=== PATIENT | male | born 1975 | race Hispanic/Latino ===

== ENCOUNTER 2018-04-19 18:15 | Inpatient (IN) | payer MEDICARE ==
--- NOTE | 2018-04-19 18:33 | Emergency Department Report ---
Blank Doc - Documentation Documentation: This is a 43-year-old male that presents to the ED with right forearm. Denies any injuries. MRI and xrays done last year and was diagnosed with "cyst". Patient denies any other complaints. This initial assessment diagnostic orders/clinical plan/treatment(s) is/are subject to change based on patient's health status, clinical progression and re- assessment by fellow clinical providers in the ED. Further treatment and workup at subsequent clinical providers discretion. Patient/guardians urged not to elope from ED s their condition may be serious if not clinically assessed and managed. Initial orders include: 1-patient sent to [facility] for further evaluation and treatment.
[2018-04-20 00:08] LABS: Basophils % (Auto) 0.3 % (0.0-1.8); Eosinophils # (Auto) 0.1 K/mm3 (0.0-0.4); Eosinophils % (Auto) 1.2 % (0.0-4.3); Hematocrit 47.7 % (35.5-45.6); Hemoglobin 16.6 gm/dl (11.8-15.2); Lymphocytes % (Auto) 39.6 % (13.4-35.0); Mean Corpuscular HGB Conc 35 % (32-34); Mean Corpuscular Volume 90 fl (84-94); Monocytes # (Auto) 0.7 K/mm3 (0.0-0.8); Monocytes % (Auto) 6.9 % (0.0-7.3); Platelet Count 361 K/mm3 (140-440); Red Blood Count 5.28 M/mm3 (3.65-5.03); Red Cell Distribution Width 12.9 % (13.2-15.2)
[2018-04-20 00:18] LABS: INR 0.92 (0.87-1.13); Partial Thromboplastin Time 24.6 Sec. (24.2-36.6)
[2018-04-20 00:21] LABS: Albumin 4.6 g/dL (3.9-5); BUN/Creatinine Ratio 21; Blood Urea Nitrogen 21 mg/dL (9-20); Calcium 9.4 mg/dL (8.4-10.2); Hemolysis Index 191
[2018-04-20 00:34] LABS: Alanine Aminotransferase 43 units/L (7-56)
[2018-04-20] MEDS ORDERED: LIORESAL PO ONE (00:50)
[2018-04-20] MEDS ORDERED: MORPHINE ONE (01:04)
[2018-04-20] MEDS ORDERED: MORPHINE IV ONE (01:05)
[2018-04-20] MEDS ORDERED: NACL 0.9% 1000 ML 1,000 ML IV ONE ×2 (01:27)
--- NOTE | 2018-04-20 02:08 | Emergency Department Report ---
ED General Adult HPI - General Chief complaint: Extremity Problem,Nontraumatic Stated complaint: RIGHT ARM PAIN Time Seen by Provider: 04/19/18 18:32 Source: patient Mode of arrival: Ambulatory Limitations: No Limitations - History of Present Illness Initial comments: Patient is a poor historian. He complained of right upper extremity pain which has been ongoing for several weeks and became worse. -: Gradual, month(s) Location: upper extremity Radiation: non-radiation Severity scale (0 -10): 6 Consistency: constant Improves with: none Worsens with: none Associated Symptoms: denies other symptoms Treatments Prior to Arrival: none - Related Data Home Medications Medication Instructions Recorded Confirmed Last Taken amLODIPine [Norvasc] 10 mg PO DAILY 10/05/14 01/01/15 12/31/14 Lisinopril [Zestril TAB] 20 mg PO QDAY 01/01/15 01/01/15 12/31/14 Allergies Allergy/AdvReac Type Severity Reaction Status Date / Time Penicillins Allergy Unknown Verified 12/31/14 10:03 ED Review of Systems ROS: Stated complaint: RIGHT ARM PAIN Other details as noted in HPI Comment: All other systems reviewed and negative Constitutional: denies: chills, fever Eyes: denies: eye pain, eye discharge, vision change ENT: denies: ear pain, throat pain Respiratory: denies: cough, shortness of breath, wheezing Cardiovascular: denies: chest pain, palpitations Endocrine: no symptoms reported Gastrointestinal: denies: abdominal pain, nausea, diarrhea Genitourinary: denies: urgency, dysuria Musculoskeletal: other (right arm pain.). denies: back pain, joint swelling, arthralgia Skin: denies: rash, lesions Neurological: denies: headache, weakness, paresthesias Psychiatric: denies: anxiety, depression Hematological/Lymphatic: denies: easy bleeding, easy bruising ED Past Medical Hx - Past Medical History Previous Medical History?: Yes Hx Hypertension: Yes Hx CVA: Yes Hx Kidney Stones: Yes Hx Psychiatric Treatment: Yes (unsure of diagnosis/"SCHIZOPHRENIA/ MANIC DEPRESSION") - Surgical History Past Surgical History?: Yes Additional Surgical History: LITHOTRIPSY. TRACH/ FEEDING TUBE--CLOSED NOW - Social History Smoking Status: Never Smoker Substance Use Type: Prescribed - Medications Home Medications: Home Medications Medication Instructions Recorded Confirmed Last Taken Type amLODIPine [Norvasc] 10 mg PO DAILY 10/05/14 01/01/15 12/31/14 History Lisinopril [Zestril TAB] 20 mg PO QDAY 01/01/15 01/01/15 12/31/14 History ED Physical Exam - General Limitations: No Limitations General appearance: alert, in no apparent distress - Head Head exam: Present: atraumatic, normocephalic - Eye Eye exam: Present: normal appearance, other (patient is legally blind) - ENT ENT exam: Present: mucous membranes moist - Neck Neck exam: Present: normal inspection, full ROM. Absent: tenderness - Respiratory Respiratory exam: Present: normal lung sounds bilaterally. Absent: respiratory distress - Cardiovascular Cardiovascular Exam: Present: regular rate, normal rhythm. Absent: systolic murmur, diastolic murmur, rubs, gallop - GI/Abdominal GI/Abdominal exam: Present: soft, normal bowel sounds - Rectal Rectal exam: Present: deferred - Extremities Exam Extremities exam: Present: normal inspection, normal capillary refill - Back Exam Back exam: Present: normal inspection - Neurological Exam Neurological exam: Present: alert, oriented X3 - Psychiatric Psychiatric exam: Present: normal affect, normal mood - Skin Skin exam: Present: warm, dry, intact, normal color. Absent: rash ED Course Vital Signs 04/19/18 04/19/18 04/19/18 18:31 22:53 22:55 Temperature 98.5 F Pulse Rate 98 H 78 80 Respiratory 18 17 18 Rate Blood Pressure 152/94 122/78 Blood Pressure 122/78 [Left] O2 Sat by Pulse 97 96 96 Oximetry 04/19/18 04/19/18 04/20/18 23:00 23:47 00:01 Temperature Pulse Rate 74 77 Respiratory 19 16 18 Rate Blood Pressure 124/85 124/85 Blood Pressure [Left] O2 Sat by Pulse 96 98 Oximetry 04/20/18 01:01 Temperature Pulse Rate 64 Respiratory 18 Rate Blood Pressure 124/85 Blood Pressure [Left] O2 Sat by Pulse Oximetry - Consultations Consultation #1: 04/20/18 02:21 Dr. Venecia Hanley to admit patient for further management. ED Medical Decision Making - Lab Data Result diagrams: 04/19/18 23:59 04/19/18 23:59 Lab Results 04/19/18 04/19/18 04/19/18 Range/Units 23:59 23:59 23:59 WBC 10.0 (4.5-11.0) K/mm3 RBC 5.28 H (3.65-5.03) M/mm3 Hgb 16.6 H (11.8-15.2) gm/dl Hct 47.7 H (35.5-45.6) % MCV 90 (84-94) fl MCH 31 (28-32) pg MCHC 35 H (32-34) % RDW 12.9 L (13.2-15.2) % Plt Count 361 (140-440) K/mm3 Lymph % (Auto) 39.6 H (13.4-35.0) % Kingfisher % (Auto) 6.9 (0.0-7.3) % Eos % (Auto) 1.2 (0.0-4.3) % Baso % (Auto) 0.3 (0.0-1.8) % Lymph # 4.0 (1.2-5.4) K/mm3 Kingfisher # 0.7 (0.0-0.8) K/mm3 Eos # 0.1 (0.0-0.4) K/mm3 Baso # 0.0 (0.0-0.1) K/mm3 Seg Neutrophils % 52.0 (40.0-70.0) % Seg Neutrophils # 5.2 (1.8-7.7) K/mm3 PT 12.9 (12.2-14.9) Sec. INR 0.92 (0.87-1.13) APTT 24.6 (24.2-36.6) Sec. Sodium 140 (137-145) mmol/L Potassium 5.5 H (3.6-5.0) mmol/L Chloride 104.2 (98-107) mmol/L Carbon Dioxide 25 (22-30) mmol/L Anion Gap 16 mmol/L BUN 21 H (9-20) mg/dL Creatinine 1.0 (0.8-1.5) mg/dL Estimated GFR > 60 ml/min BUN/Creatinine Ratio 21 % Glucose 73 L (75-100) mg/dL Calcium 9.4 (8.4-10.2) mg/dL Total Bilirubin 0.40 (0.1-1.2) mg/dL AST 70 H (5-40) units/L ALT 43 (7-56) units/L Alkaline Phosphatase 86 (35-129) units/L Total Creatine Kinase 2468 H (55-170) units/L Total Protein 7.4 (6.3-8.2) g/dL Albumin 4.6 (3.9-5) g/dL Albumin/Globulin Ratio 1.6 % - Medical Decision Making Rhabdomyolysis. Critical care attestation.: If time is entered above; I have spent that time in minutes in the direct care of this critically ill patient, excluding procedure time. ED Disposition Clinical Impression: Right arm pain Rhabdomyolysis Qualifiers: Rhabdomyolysis type: non-traumatic Qualified Code(s): M62.82 - Rhabdomyolysis Disposition: 09 OP ADMIT IP TO THIS HOSP Is pt being admited?: Yes Does the pt Need Aspirin: No Condition: Stable Referrals: RUBEN CORRAL MD [Primary Care Provider] - 3-5 Days Time of Disposition: 02:22
--- NOTE | 2018-04-20 02:35 | XRay Report ---
FINAL REPORT PROCEDURE: XR HUMERUS 2+V RT TECHNIQUE: RIGHT humerus radiographs, AP and lateral views. HISTORY: pain COMPARISON: No prior studies are available for comparison. FINDINGS: Fracture (s) and/or Dislocation(s): None . Joint space(s): Normal. Soft tissues: Normal. Bone mineralization: Normal. Foreign bodies: None. IMPRESSION: Normal Examination.
--- NOTE | 2018-04-20 02:35 | XRay Report ---
FINAL REPORT PROCEDURE: XR ELBOW 3+V RT TECHNIQUE: RIGHT elbow radiographs, including AP, lateral, and oblique views. CPT 89925 HISTORY: pain COMPARISON: No prior studies are available for comparison. FINDINGS: Fracture (s) and/or Dislocation(s): None . Alignment: Normal . Joint space(s): Normal . Soft tissues: Normal . Bone mineralization: Normal . Foreign bodies: None . IMPRESSION: Normal Examination
[2018-04-20] MEDS ORDERED: KIONEX PO ONE (02:38)
--- NOTE | 2018-04-20 02:39 | History and Physical Report ---
History of Present Illness Date of examination: 04/20/18 History of present illness: This is a 43-year-old man history of hypertension, CVA comes emergency room complaining of right forearm pain. He's had this pain since December, he is being worked up by orthopedic, status post 2 MRI of his arm and was told that he had a cyst that was was closed to the nerve. In the emergency room he was found to have rhabdomyolysis, hyperkalemia Review of systems Constitutional: no weight loss, chills, fever Ears, eyes, nose, mouth and throat: no nasal congestion, no nasal discharge, no sinus pressure, no vision change, no red eye. Neck: No neck pain or rigidity. Cardiovascular: no palpitations, chest pain Respiratory: no cough, shortness of breath Gastrointestinal: no hematochezia, abdominal pain Genitourinary : no frequency , no hematuria Musculoskeletal: no joint swelling or muscle ache Integumentary: no rash, no pruritis Neurological: no parathesias, no focal weakness Endocrine: no cold or heat intolerance, no polyuria or polydipsia Hematologic/Lymphatic: no easy bruising, no easy bleeding, no gland swelling Allergic/Immunologic: no urticaria, no angioedema. PAST MEDICAL HISTORY: hypertension, CVA PAST SURGICAL HISTORY: None SOCIAL HISTORY: Denies alcohol, drugs, tobacco FAMILY HISTORY: Hypertension Medications and Allergies Allergies Allergy/AdvReac Type Severity Reaction Status Date / Time Penicillins Allergy Unknown Verified 12/31/14 10:03 Home Medications Medication Instructions Recorded Confirmed Last Taken Type amLODIPine [Norvasc] 10 mg PO DAILY 10/05/14 01/01/15 12/31/14 History Lisinopril [Zestril TAB] 20 mg PO QDAY 01/01/15 01/01/15 12/31/14 History Active Meds: Active Medications Sodium Polystyrene Sulfonate (Kionex) 30 gm PO ONCE ONE Stop: 04/20/18 02:39 Exam - Physical Exam Narrative exam: General Apperance: The patient lying in bed, breathing comfortable HEENT: Normocephalic, atraumatic. Pupils equally round and reactive to light, EOMI, no sclericterus or JVD or thyromegaly or nodule. , no carotid bruit, mucous membranes moist, no exudate or erythema Heart: S1-S2, regular is rhythm Lungs: Clear to auscultation bilaterally, breathing comfortable Abdomen: Positive bowel sounds, soft, nontender, nondistended, no organomegaly Extremities: No edema cyanosis clubbing Skin: no rash, nodule, warm and dry Neuro: cranial nerves 2-12 intact, speech is fluent, motor/sensory intact - Constitutional Vitals: Temp Pulse Resp BP Pulse Ox 98.5 F 64 18 124/85 98 04/19/18 18:31 04/20/18 01:01 04/20/18 01:01 04/20/18 01:01 04/19/18 23:47 Results - Labs CBC & Chem 7: 04/19/18 23:59 04/19/18 23:59 Labs: Abnormal lab results 04/19/18 04/19/18 Range/Units 23:59 23:59 RBC 5.28 H (3.65-5.03) M/mm3 Hgb 16.6 H (11.8-15.2) gm/dl Hct 47.7 H (35.5-45.6) % MCHC 35 H (32-34) % RDW 12.9 L (13.2-15.2) % Lymph % (Auto) 39.6 H (13.4-35.0) % Potassium 5.5 H (3.6-5.0) mmol/L BUN 21 H (9-20) mg/dL Glucose 73 L (75-100) mg/dL AST 70 H (5-40) units/L Total Creatine Kinase 2468 H (55-170) units/L Assessment and Plan Elbow and humerus x-ray reviewed Assessment Acute hyperkalemia secondary to RUBIA inhibitor Rhabdomyolysis Hypertension History of CVA Plan Admit to medicine Give Kayexalate, hold RUBIA inhibitor, monitor potassium level Start aggressive IV fluid, monitor CK Start Percocet, Flexeril, DVT prophylaxis
[2018-04-20] MEDS ORDERED: TYLENOL PO PRN (03:18)
[2018-04-20] MEDS ORDERED: ZOFRAN IV PRN (03:18)
[2018-04-20] MEDS ORDERED: SODIUM CHLORIDE FLUSH SYRINGE 10 ML IV PRN (03:18)
[2018-04-20] MEDS: PERCOCET 5/325 PO PRN ×4 (04:40→19:43)
[2018-04-20 04:53] LABS: Bilirubin,Urine NEG (Negative); Blood,Urine NEG (Negative); Calcium Oxalate Crystals,Urine FEW; Color,Urine Yellow (Yellow); Mucus,Urine FEW /HPF; Protein,Urine <15 mg/dL mg/dL (Negative); Urobilinogen,Urine < 2.0 mg/dL (<2.0)
[2018-04-20 04:59] LABS: Amphetamine Screen,Urine PRESUMPTIVE NEGATIVE; Benzodiazepines Screen,Urine PRESUMPTIVE NEGATIVE; Cannabinoid Screen,Urine PRESUMPTIVE NEGATIVE; Cocaine Screen,Urine PRESUMPTIVE NEGATIVE; Methadone Screen,Urine PRESUMPTIVE NEGATIVE; Opiate Screen,Urine PRESUMPTIVE NEGATIVE
[2018-04-20] MEDS: NACL 0.45% 1000 ML 1,000 ML IV SCH ×2 (05:38→13:38)
[2018-04-20] MEDS: FLEXERIL PO PRN (09:28)
[2018-04-20] MEDS: NORVASC PO SCH (09:28)
[2018-04-20] MEDS: LOVENOX SUB-Q SCH (09:29)
[2018-04-20] MEDS ORDERED: LOVENOX SUB-Q SCH (10:00)
--- NOTE | 2018-04-20 11:08 | Event Note ---
Date: 04/20/18 Patient with rhabdomyolysis, hyperkalemia. I have seen and examined him. Hold HCTZ. Hold Lipitor because rhabdo.
[2018-04-20 12:06] LABS: BUN/Creatinine Ratio 17; Blood Urea Nitrogen 15 mg/dL (9-20); Hemolysis Index 7
[2018-04-20] MEDS: SODIUM CHLORIDE FLUSH SYRINGE 10 ML IV SCH ×2 (14:26→22:00)
[2018-04-20] MEDS ORDERED: NEURONTIN PO SCH (22:00)
[2018-04-21 06:10] LABS: Basophils # (Auto) 0.1 K/mm3 (0.0-0.1); Eosinophils # (Auto) 0.2 K/mm3 (0.0-0.4); Eosinophils % (Auto) 2.7 % (0.0-4.3); Hemoglobin 15.3 gm/dl (11.8-15.2); Lymphocytes # (Auto) 3.1 K/mm3 (1.2-5.4); Lymphocytes % (Auto) 45.2 % (13.4-35.0); Mean Corpuscular HGB Conc 35 % (32-34); Mean Corpuscular Volume 91 fl (84-94); Monocytes # (Auto) 0.5 K/mm3 (0.0-0.8); Monocytes % (Auto) 7.3 % (0.0-7.3); Platelet Count 294 K/mm3 (140-440); Red Blood Count 4.84 M/mm3 (3.65-5.03); Red Cell Distribution Width 12.9 % (13.2-15.2)
[2018-04-21 06:34] LABS: BUN/Creatinine Ratio 13; Blood Urea Nitrogen 12 mg/dL (9-20); Calcium 9.2 mg/dL (8.4-10.2); Hemolysis Index 61
[2018-04-21] MEDS: PERCOCET 5/325 PO PRN ×2 (07:46→13:30)
[2018-04-21] MEDS: FLEXERIL PO PRN (07:46)
[2018-04-21] MEDS: LOVENOX SUB-Q SCH (09:23)
[2018-04-21] MEDS: SODIUM CHLORIDE FLUSH SYRINGE 10 ML IV SCH (09:24)
[2018-04-21] MEDS: NORVASC PO SCH (09:24)
--- NOTE | 2018-04-21 09:30 | Discharge Summary ---
Providers - Providers Date of Admission: 04/20/18 02:50 Date of discharge: 04/21/18 Attending physician: PATRICIA VELÁSQUEZ [facility] Reason for admission: rhabdomyolysis, hyperkalemia Condition: Stable Hospital course: This is a 43-year-old man history of hypertension, CVA comes emergency room complaining of right forearm pain. He's had this pain since December, he is being worked up by orthopedic, status post 2 MRI of his arm and was told that he had a cyst that was was closed to the nerve. In the emergency room he was found to have rhabdomyolysis, hyperkalemia. The patient was found to have a creatinine kinase level of 2468 on admission and potassium of 5.5. Patient received IV fluid hydration with improvement. Patient is to follow with orthopedics as an outpatient for the arm swelling. Elbow and humerus x-rays were found to be negative. Dedicated discharge time 32 minutes. Disposition: - TO HOME OR SELFCARE Time spent for discharge: 32 - Discharge Diagnoses (1) Hyperkalemia Status: Acute (2) Rhabdomyolysis Status: Acute Qualifiers: Rhabdomyolysis type: non-traumatic Qualified Code(s): M62.82 - Rhabdomyolysis (3) Right arm pain Status: Acute Core Measure Documentation - Palliative Care Palliative Care/ Comfort Measures: Not Applicable - Core Measures Any of the following diagnoses?: none Exam - Constitutional Vitals: Temp Pulse Resp BP Pulse Ox 98 F 75 16 124/78 100 04/21/18 09:21 04/21/18 09:21 04/21/18 09:21 04/21/18 09:21 04/21/18 09:21 General appearance: Present: no acute distress, well-nourished - EENT Eyes: Present: PERRL ENT: hearing intact, clear oral mucosa - Neck Neck: Present: supple, normal ROM - Respiratory Respiratory effort: normal Respiratory: bilateral: CTA - Cardiovascular Heart Sounds: Present: S1 & S2. Absent: rub, click - Extremities Extremities: pulses symmetrical, No edema Peripheral Pulses: within normal limits - Abdominal General gastrointestinal: Present: soft, non-tender, non-distended, normal bowel sounds Male genitourinary: Present: normal - Integumentary Integumentary: Present: clear, warm, dry - Musculoskeletal Musculoskeletal: gait normal, strength equal bilaterally - Psychiatric Psychiatric: appropriate mood/affect, intact judgment & insight - Neurologic Neurologic: CNII-XII intact, moves all extremities Plan Activity: advance as tolerated Weight Bearing Status: Weight Bear as Tolerated Diet: regular Follow up with: RUBEN CORRAL MD [Primary Care Provider] - 3-5 Days Prescriptions: amLODIPine [Norvasc] 10 mg PO DAILY #30 tablet AtorvaSTATin [Lipitor] 40 mg PO QHS #30 tablet Baclofen 15 mg PO TID #90 tablet Gabapentin [Neurontin] 300 mg PO QHS #30 capsule hydroCHLOROthiazide [Hydrochlorothiazide] 12.5 mg PO QDAY #30 tablet Lisinopril [Zestril TAB] 20 mg PO BID #30 tablet oxyCODONE /ACETAMINOPHEN [Percocet 5/325 mg] 1 tab PO Q4H PRN #12 tablet PRN Reason: Pain, Moderate (4-6)
[2018-04-21] MEDS ORDERED: THERAGRAN-M Tab PO SCH (10:00)
[2018-04-21 12:39] VITALS: BP 129/94
== END 2018-04-21 17:11 | disposition home or self-care (01) | DRG 558 ==
LOC: ED 18:15 → 4A 04-20 02:50
PROVIDERS: ADMIT Internal Medicine; ATTEND Hospitalist
DX: M62.82 Rhabdomyolysis (principal); E87.5 Hyperkalemia; I10 Essential (primary) hypertension; F20.9 Schizophrenia, unspecified; T46.4X5A Adverse effect of angiotensin-converting-enzyme inhibitors, initial encounter; Y92.89 Other specified places as the place of occurrence of the external cause; G96.8 Other specified disorders of central nervous system; M79.601 Pain in right arm; Z86.73 Personal history of transient ischemic attack (TIA), and cerebral infarction without residual deficits; Z82.49 Family history of ischemic heart disease and other diseases of the circulatory system; Z88.0 Allergy status to penicillin
CPT/HCPCS: 36415; 80048; 80053; 80307; 81001; 82550; 85025; 85610; 85730; 87116; G0378; J1650; J2270; J7030

== ENCOUNTER 2018-05-18 10:51 | Emergency (ER) | payer MEDICARE ==
[2018-05-18 11:29] VITALS: BP 136/83
--- NOTE | 2018-05-18 11:29 | Emergency Department Report ---
Blank Doc - Documentation Documentation: This is a 43-year-old male that presents to the ED with right forearm. Denies any injuries. Patient is requested for pain medications such as gabapentin or percocet. Patient was here recently for same symptoms. Stated was admitted for potassium abnormal levels. This initial assessment diagnostic orders/clinical plan/treatment(s) is/are subject to change based on patient's health status, clinical progression and re- assessment by fellow clinical providers in the ED. Further treatment and workup at subsequent clinical providers discretion. Patient/guardians urged not to elope from ED s their condition may be serious if not clinically assessed and managed. Initial orders include: 1-patient sent to [facility] for further evaluation and treatment. 2- labs
[2018-05-18 12:04] LABS: Basophils # (Auto) 0.1 K/mm3 (0.0-0.1); Basophils % (Auto) 0.8 % (0.0-1.8); Eosinophils # (Auto) 0.1 K/mm3 (0.0-0.4); Eosinophils % (Auto) 0.9 % (0.0-4.3); Hematocrit 46.8 % (35.5-45.6); Hemoglobin 16.1 gm/dl (11.8-15.2); Lymphocytes # (Auto) 1.9 K/mm3 (1.2-5.4); Lymphocytes % (Auto) 26.1 % (13.4-35.0); Mean Corpuscular HGB Conc 34 % (32-34); Mean Corpuscular Volume 91 fl (84-94); Monocytes # (Auto) 0.6 K/mm3 (0.0-0.8); Monocytes % (Auto) 7.5 % (0.0-7.3); Platelet Count 304 K/mm3 (140-440); Red Blood Count 5.13 M/mm3 (3.65-5.03); Red Cell Distribution Width 12.5 % (13.2-15.2)
[2018-05-18 12:32] LABS: BUN/Creatinine Ratio 16; Blood Urea Nitrogen 18 mg/dL (9-20); Calcium 9.7 mg/dL (8.4-10.2); Hemolysis Index 13
--- NOTE | 2018-05-18 12:33 | Emergency Department Report ---
ED Extremity Problem HPI - General Chief complaint: Extremity Problem,Nontraumatic Stated complaint: ARM PAIN Time Seen by Provider: 05/18/18 11:26 Source: patient Mode of arrival: Wheelchair Limitations: Physical Limitation - History of Present Illness Initial comments: 43-year-old male presents to ED with chronic right arm pain since December 2017. Patient states he was told he could possibly have a cyst on the nerves of his right arm, which could be cause of his pain. Patient reports burning, sharp pain. Denies swelling. He states he has taken gabapentin and Percocet in the past but has ran out of both. Patient as well as follow-up with pain management next month. MD Complaint: extremity pain -: month(s) (5) Location: right, upper extremity History of Same: Yes -: Yes myalgia Severity scale (0 -10): 8 Quality: burning, stabbing Consistency: intermittent Improves with: medication (gabapentin, Percocet) Worsens with: nothing Associated Symptoms: denies other symptoms - Related Data Home Medications Medication Instructions Recorded Confirmed Last Taken Adult One Daily Multivit Tab 1 tab QDAY 04/20/18 04/20/18 Unknown Previous Rx's Medication Instructions Recorded Last Taken Type AtorvaSTATin [Lipitor] 40 mg PO QHS #30 tablet 04/21/18 Unknown Rx Cyclobenzaprine [Flexeril 10 MG 5 mg PO Q8H PRN tablet 04/21/18 Unknown Rx TAB] Lisinopril [Zestril TAB] 20 mg PO BID #30 tablet 04/21/18 Unknown Rx amLODIPine [Norvasc] 10 mg PO DAILY #30 tablet 04/21/18 Unknown Rx hydroCHLOROthiazide 12.5 mg PO QDAY #30 tablet 04/21/18 Unknown Rx [Hydrochlorothiazide] oxyCODONE /ACETAMINOPHEN [Percocet 1 tab PO Q4H PRN #12 tablet 04/21/18 Unknown Rx 5/325 mg] Baclofen 15 mg PO TID #90 tablet 05/18/18 Unknown Rx Gabapentin [Neurontin] 300 mg PO QHS #30 capsule 05/18/18 Unknown Rx Allergies Allergy/AdvReac Type Severity Reaction Status Date / Time Penicillins Allergy Unknown Verified 12/31/14 10:03 ED Review of Systems ROS: Stated complaint: ARM PAIN Other details as noted in HPI Comment: All other systems reviewed and negative Constitutional: denies: fever Musculoskeletal: as per HPI ED Past Medical Hx - Past Medical History Previous Medical History?: Yes Hx Hypertension: Yes Hx CVA: Yes Hx Heart Attack/AMI: No Hx Congestive Heart Failure: No Hx Diabetes: No Hx Deep Vein Thrombosis: No Hx Renal Disease: No Hx Seizures: No Hx Kidney Stones: Yes Hx Psychiatric Treatment: Yes (unsure of diagnosis/"SCHIZOPHRENIA/ MANIC DEPRESSION") Hx Asthma: No Hx COPD: No Hx Dementia: No - Surgical History Past Surgical History?: Yes Hx Coronary Stent: No Hx Pacemaker: No Hx Internal Defibrillator: No Additional Surgical History: LITHOTRIPSY. TRACH/ FEEDING TUBE--CLOSED NOW - Social History Smoking Status: Former Smoker Substance Use Type: None - Medications Home Medications: Home Medications Medication Instructions Recorded Confirmed Last Taken Type Adult One Daily Multivit Tab 1 tab QDAY 04/20/18 04/20/18 Unknown History AtorvaSTATin [Lipitor] 40 mg PO QHS #30 tablet 04/21/18 Unknown Rx Cyclobenzaprine [Flexeril 10 MG 5 mg PO Q8H PRN tablet 04/21/18 Unknown Rx TAB] Lisinopril [Zestril TAB] 20 mg PO BID #30 tablet 04/21/18 Unknown Rx amLODIPine [Norvasc] 10 mg PO DAILY #30 tablet 04/21/18 Unknown Rx hydroCHLOROthiazide 12.5 mg PO QDAY #30 tablet 04/21/18 Unknown Rx [Hydrochlorothiazide] oxyCODONE /ACETAMINOPHEN [Percocet 1 tab PO Q4H PRN #12 tablet 04/21/18 Unknown Rx 5/325 mg] Baclofen 15 mg PO TID #90 tablet 05/18/18 Unknown Rx Gabapentin [Neurontin] 300 mg PO QHS #30 capsule 05/18/18 Unknown Rx ED Physical Exam - General Limitations: Physical Limitation General appearance: alert, in no apparent distress - Head Head exam: Present: atraumatic, normocephalic - ENT ENT exam: Present: mucous membranes moist - Neck Neck exam: Present: normal inspection - Respiratory Respiratory exam: Present: normal lung sounds bilaterally. Absent: respiratory distress - Cardiovascular Cardiovascular Exam: Present: regular rate, normal rhythm - GI/Abdominal GI/Abdominal exam: Absent: distended - Extremities Exam Extremities exam: Present: other (right arm appears normal, no swelling or erythema, no tenderness to palpation; strength 5/5, sensation normal) - Neurological Exam Neurological exam: Present: other (speech is slurred (baseline per patient)). Absent: motor sensory deficit - Psychiatric Psychiatric exam: Present: normal affect, normal mood - Skin Skin exam: Present: warm, dry, intact, normal color ED Course Vital Signs 05/18/18 11:27 Temperature 97.9 F Pulse Rate 63 Respiratory 20 Rate Blood Pressure 136/83 O2 Sat by Pulse 97 Oximetry ED Medical Decision Making - Lab Data Result diagrams: 05/18/18 11:49 05/18/18 11:52 - Medical Decision Making - chronic arm pain - labs normal today, last month admitted for rhabdo w/ hyperkalemia - d/c'd last month w/ baclofen and gabapentin, will refill - outpatient follow-up advised - Differential Diagnosis chronic pain, neuropathy, rhabdo Critical care attestation.: If time is entered above; I have spent that time in minutes in the direct care of this critically ill patient, excluding procedure time. ED Disposition Clinical Impression: Chronic pain of right upper extremity, Neuropathy Disposition: TO HOME OR SELFCARE Is pt being admited?: No Condition: Stable Instructions: Peripheral Neuropathy (ED), Chronic Pain (ED) Prescriptions: Gabapentin [Neurontin] 300 mg PO QHS #30 capsule Baclofen 15 mg PO TID #90 tablet Referrals: ANSON HULL MD [Primary Care Provider] - 3-5 Days PRIMARY CARE, [Referring] - 3-5 Days Time of Disposition: 12:37
== END 2018-05-18 12:44 | disposition home or self-care (01) ==
LOC: ED 10:51
DX: G56.91 Unspecified mononeuropathy of right upper limb (principal); I10 Essential (primary) hypertension; Z88.0 Allergy status to penicillin; Z87.891 Personal history of nicotine dependence
CPT/HCPCS: 36415; 80048; 82550; 85025; 99283

== ENCOUNTER 2018-06-28 16:30 | Emergency (ER) | payer MEDICARE ==
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
[2018-06-28 17:46] LABS: Alanine Aminotransferase 29 units/L (7-56); Albumin 4.7 g/dL (3.9-5); BUN/Creatinine Ratio 16; Blood Urea Nitrogen 18 mg/dL (9-20); Hemolysis Index 27
[2018-06-28] MEDS ORDERED: NACL 0.9% 1000 ML 1,000 ML IV ONE (18:31)
[2018-06-28] MEDS ORDERED: ANTIVERT PO ONE (18:32)
[2018-06-28 20:55] LABS: Amphetamine Screen,Urine PRESUMPTIVE NEGATIVE; Benzodiazepines Screen,Urine PRESUMPTIVE NEGATIVE; Cannabinoid Screen,Urine PRESUMPTIVE NEGATIVE; Cocaine Screen,Urine PRESUMPTIVE NEGATIVE; Methadone Screen,Urine PRESUMPTIVE NEGATIVE; Opiate Screen,Urine PRESUMPTIVE NEGATIVE
[2018-06-28 20:58] LABS: Bilirubin,Urine NEG (Negative); Blood,Urine NEG (Negative); Color,Urine Yellow (Yellow); Protein,Urine <15 mg/dL mg/dL (Negative); Urobilinogen,Urine < 2.0 mg/dL (<2.0)
--- NOTE | 2018-06-28 21:30 | Emergency Department Report ---
ED General Adult HPI - General Chief complaint: Dizziness Stated complaint: DIZZINESS Time Seen by Provider: 06/28/18 18:22 Source: patient, EMS Mode of arrival: Ambulatory Limitations: No Limitations - History of Present Illness Initial comments: Patient is a 43-year-old male who is presenting with chief complaint of "fluctuations in her blood pressure". Patient states he is at a [facility] and he's been very unhappy with the lady who runs the [facility]. Patient states he is fine as long as he progresses all meals however when he is fitted from the caregiver she uses too much salt in his blood pressure will rest. Patient states that he had to go to the hospital 2 weeks ago secondary to elevation of his blood pressure. Patient states that he had elevated blood pressure earlier today secondary to a meal she had prepared. The Patient Arrived Blood Pressure Had Normalized However He Stated That His Diastolic Blood Pressure Was over 100 While He Was There. Patient Is Denying Any Chest Pain She Shortness of Breath Fevers Chills Nausea Vomiting. Patient Does State He Has Some Dizziness Associated with the Elevation of His Blood Pressure. Patient States when his Blood Pressure Rises He Also Feels As Though His Eyes Shake. Severity scale (0 -10): 0 - Related Data Home Medications Medication Instructions Recorded Confirmed Last Taken Adult One Daily Multivit Tab 1 tab QDAY 04/20/18 04/20/18 Unknown Previous Rx's Medication Instructions Recorded Last Taken Type AtorvaSTATin [Lipitor] 40 mg PO QHS #30 tablet 04/21/18 Unknown Rx Cyclobenzaprine [Flexeril 10 MG 5 mg PO Q8H PRN tablet 04/21/18 Unknown Rx TAB] Lisinopril [Zestril TAB] 20 mg PO BID #30 tablet 04/21/18 Unknown Rx amLODIPine [Norvasc] 10 mg PO DAILY #30 tablet 04/21/18 Unknown Rx hydroCHLOROthiazide 12.5 mg PO QDAY #30 tablet 04/21/18 Unknown Rx [Hydrochlorothiazide] oxyCODONE /ACETAMINOPHEN [Percocet 1 tab PO Q4H PRN #12 tablet 04/21/18 Unknown Rx 5/325 mg] Baclofen 15 mg PO TID #90 tablet 05/18/18 Unknown Rx Gabapentin [Neurontin] 300 mg PO QHS #30 capsule 05/18/18 Unknown Rx Allergies Allergy/AdvReac Type Severity Reaction Status Date / Time Penicillins Allergy Unknown Verified 06/28/18 16:32 ED Review of Systems ROS: Stated complaint: DIZZINESS Other details as noted in HPI Comment: All other systems reviewed and negative ED Past Medical Hx - Past Medical History Hx Hypertension: Yes Hx CVA: Yes Hx Heart Attack/AMI: No Hx Congestive Heart Failure: No Hx Diabetes: No Hx Deep Vein Thrombosis: No Hx Renal Disease: No Hx Seizures: No Hx Kidney Stones: Yes Hx Psychiatric Treatment: Yes (unsure of diagnosis/"SCHIZOPHRENIA/ MANIC DEPRESSION") Hx Asthma: No Hx COPD: No Hx Dementia: No - Surgical History Past Surgical History?: Yes Hx Coronary Stent: No Hx Pacemaker: No Hx Internal Defibrillator: No Additional Surgical History: LITHOTRIPSY. TRACH/ FEEDING TUBE--CLOSED NOW - Social History Smoking Status: Never Smoker Substance Use Type: None - Medications Home Medications: Home Medications Medication Instructions Recorded Confirmed Last Taken Type Adult One Daily Multivit Tab 1 tab QDAY 04/20/18 04/20/18 Unknown History AtorvaSTATin [Lipitor] 40 mg PO QHS #30 tablet 04/21/18 Unknown Rx Cyclobenzaprine [Flexeril 10 MG 5 mg PO Q8H PRN tablet 04/21/18 Unknown Rx TAB] Lisinopril [Zestril TAB] 20 mg PO BID #30 tablet 04/21/18 Unknown Rx amLODIPine [Norvasc] 10 mg PO DAILY #30 tablet 04/21/18 Unknown Rx hydroCHLOROthiazide 12.5 mg PO QDAY #30 tablet 04/21/18 Unknown Rx [Hydrochlorothiazide] oxyCODONE /ACETAMINOPHEN [Percocet 1 tab PO Q4H PRN #12 tablet 04/21/18 Unknown Rx 5/325 mg] Baclofen 15 mg PO TID #90 tablet 05/18/18 Unknown Rx Gabapentin [Neurontin] 300 mg PO QHS #30 capsule 05/18/18 Unknown Rx ED Physical Exam - General Limitations: No Limitations General appearance: alert, in no apparent distress - Head Head exam: Present: atraumatic, normocephalic - Eye Eye exam: Present: normal appearance - ENT ENT exam: Present: mucous membranes moist - Neck Neck exam: Present: normal inspection - Respiratory Respiratory exam: Present: normal lung sounds bilaterally. Absent: respiratory distress, wheezes, rales, rhonchi - Cardiovascular Cardiovascular Exam: Present: regular rate, normal rhythm. Absent: systolic murmur, diastolic murmur, rubs, gallop - GI/Abdominal GI/Abdominal exam: Present: soft, normal bowel sounds. Absent: distended, tenderness, guarding, rebound, rigid - Rectal Rectal exam: Present: deferred - Extremities Exam Extremities exam: Present: normal inspection - Back Exam Back exam: Present: normal inspection - Neurological Exam Neurological exam: Present: alert, oriented X3 - Psychiatric Psychiatric exam: Present: normal affect, normal mood - Skin Skin exam: Present: warm, dry, intact, normal color. Absent: rash ED Course Vital Signs 06/28/18 06/28/18 06/28/18 16:48 18:00 18:30 Temperature 98.6 F Pulse Rate 124 H 84 Pulse Rate [ Lying] Respiratory 18 17 18 Rate Blood Pressure 111/80 Blood Pressure [Lying] Blood Pressure 115/69 [Right] O2 Sat by Pulse 98 100 100 Oximetry 06/28/18 06/28/18 19:20 19:37 Temperature 98 F Pulse Rate 71 Pulse Rate [ 71 Lying] Respiratory 17 17 Rate Blood Pressure Blood Pressure 124/82 [Lying] Blood Pressure 124/82 [Right] O2 Sat by Pulse 94 94 Oximetry ED Medical Decision Making - Lab Data Result diagrams: 06/28/18 17:01 Lab Results 06/28/18 06/28/18 06/28/18 Range/Units 16:41 17:01 20:38 Sodium 134 L (137-145) mmol/L Potassium 4.6 (3.6-5.0) mmol/L Chloride 96.2 L (98-107) mmol/L Carbon Dioxide 26 (22-30) mmol/L Anion Gap 16 mmol/L BUN 18 (9-20) mg/dL Creatinine 1.1 (0.8-1.5) mg/dL Estimated GFR > 60 ml/min BUN/Creatinine Ratio 16 % Glucose 104 H (75-100) mg/dL POC Glucose 110 H (70-105) Calcium 10.0 (8.4-10.2) mg/dL Total Bilirubin 0.50 (0.1-1.2) mg/dL AST 26 (5-40) units/L ALT 29 (7-56) units/L Alkaline Phosphatase 83 (35-129) units/L Total Protein 7.7 (6.3-8.2) g/dL Albumin 4.7 (3.9-5) g/dL Albumin/Globulin Ratio 1.6 % Urine Color Yellow (Yellow) Urine Turbidity Clear (Clear) Urine pH 7.0 (5.0-7.0) Ur Specific [place] 1.013 (1.003-1.030) Urine Protein <15 mg/dl (Negative) mg/dL Urine Glucose (UA) Neg (Negative) mg/dL Urine Ketones Neg (Negative) mg/dL Urine Blood Neg (Negative) Urine Nitrite Neg (Negative) Urine Bilirubin Neg (Negative) Urine Urobilinogen < 2.0 (<2.0) mg/dL Ur Leukocyte Esterase Neg (Negative) Urine WBC (Auto) 1.0 (0.0-6.0) /HPF Urine RBC (Auto) 3.0 (0.0-6.0) /HPF U Epithel Cells (Auto) < 1.0 (0-13.0) /HPF Urine Opiates Screen Urine Methadone Screen Ur Barbiturates Screen Ur Phencyclidine Scrn Ur Amphetamines Screen U Benzodiazepines Scrn Urine Cocaine Screen U Marijuana (THC) Screen Drugs of Abuse Note 06/28/18 Range/Units 20:38 Sodium (137-145) mmol/L Potassium (3.6-5.0) mmol/L Chloride (98-107) mmol/L Carbon Dioxide (22-30) mmol/L Anion Gap mmol/L BUN (9-20) mg/dL Creatinine (0.8-1.5) mg/dL Estimated GFR ml/min BUN/Creatinine Ratio % Glucose (75-100) mg/dL POC Glucose (70-105) Calcium (8.4-10.2) mg/dL Total Bilirubin (0.1-1.2) mg/dL AST (5-40) units/L ALT (7-56) units/L Alkaline Phosphatase (35-129) units/L Total Protein (6.3-8.2) g/dL Albumin (3.9-5) g/dL Albumin/Globulin Ratio % Urine Color (Yellow) Urine Turbidity (Clear) Urine pH (5.0-7.0) Ur Specific [place] (1.003-1.030) Urine Protein (Negative) mg/dL Urine Glucose (UA) (Negative) mg/dL Urine Ketones (Negative) mg/dL Urine Blood (Negative) Urine Nitrite (Negative) Urine Bilirubin (Negative) Urine Urobilinogen (<2.0) mg/dL Ur Leukocyte Esterase (Negative) Urine WBC (Auto) (0.0-6.0) /HPF Urine RBC (Auto) (0.0-6.0) /HPF U Epithel Cells (Auto) (0-13.0) /HPF Urine Opiates Screen Presumptive negative Urine Methadone Screen Presumptive negative Ur Barbiturates Screen Presumptive negative Ur Phencyclidine Scrn Presumptive negative Ur Amphetamines Screen Presumptive negative U Benzodiazepines Scrn Presumptive negative Urine Cocaine Screen Presumptive negative U Marijuana (THC) Screen Presumptive negative Drugs of Abuse Note Disclamer - Medical Decision Making Patient has normal orthostatics here in the emergency department. His blood pressure has been monitored and is within normal limits as well. Patient is to be discharged at this time. He has prescriptions for all of his blood pressure medications. Best suggestion is that he continued to prepare some meals and not eat the food that is being prepared for him at the care center. Critical care attestation.: If time is entered above; I have spent that time in minutes in the direct care of this critically ill patient, excluding procedure time. ED Disposition Clinical Impression: Hypertension Qualifiers: Hypertension type: unspecified Qualified Code(s): I10 - Essential (primary) hypertension Disposition: DC-01 TO HOME OR SELFCARE Is pt being admited?: No Does the pt Need Aspirin: No Condition: Stable Instructions: Hypertension (ED), DASH Eating Plan (ED), Low Sodium Diet (ED) Referrals: RUBEN CORRAL MD [Primary Care Provider] - 3-5 Days Time of Disposition: 21:30
[2018-06-28] MEDS ORDERED: NEURONTIN ONE (23:11)
[2018-06-28] MEDS ORDERED: LIORESAL ONE (23:11)
[2018-06-28] MEDS ORDERED: NEURONTIN PO ONE (23:12)
[2018-06-28] MEDS ORDERED: LIORESAL PO SCH (23:45)
[2018-06-29 09:14] VITALS: BP 146/66
[2018-06-29] MEDS ORDERED: HCTZ PO SCH (10:00)
[2018-06-29] MEDS ORDERED: NORVASC PO SCH (10:00)
[2018-06-29] MEDS ORDERED: ZESTRIL PO SCH (10:00)
[2018-06-29] MEDS ORDERED: NON-FORMULARY (Hydrochlorothiazide [Hydrochlorothiazide] 12.5 MG) PO SCH (10:00)
[2018-06-29] MEDS ORDERED: NEURONTIN PO SCH (22:00)
== END 2018-06-29 10:03 | disposition home or self-care (01) ==
LOC: ED 16:30
DX: I10 Essential (primary) hypertension (principal); R42 Dizziness and giddiness; Z86.73 Personal history of transient ischemic attack (TIA), and cerebral infarction without residual deficits; Z88.0 Allergy status to penicillin
CPT/HCPCS: 36415; 80053; 80307; 81001; 82962; 96360; 96361; 99284; J7030